=== PATIENT | male | born 1955 | race Caucasian/White ===

== ENCOUNTER 2025-02-25 06:54 | Day surgery (SDC) | payer OTHER ==
[~2025-02-25] VITALS: Ht 193 cm; Wt 126.1 kg
[2025-02-25] MEDS ORDERED: COQ-10100 MG PO (07:38)
[2025-02-25] MEDS ORDERED: C COMPLEX1000 M1 (07:38)
[2025-02-25] MEDS ORDERED: FISH OIL 1,0001 EA10 (07:38)
[2025-02-25] MEDS ORDERED: Midazolam HCL 1 MG/ML 5MLVIAL ONE (08:30)
== END 2025-02-25 10:14 | disposition home or self-care (01) ==
LOC: ORSCSDS 06:54
PROVIDERS: Surgery
PROC: 0DBL8ZX Excision of Transverse Colon, Via Natural or Artificial Opening Endoscopic, Diagnostic (ICD-10-PCS; principal; 2025-02-25 08:45)
PROC: 0DBN8ZX Excision of Sigmoid Colon, Via Natural or Artificial Opening Endoscopic, Diagnostic (ICD-10-PCS; principal; 2025-02-25 08:45)
PROC: 0DBK8ZX Excision of Ascending Colon, Via Natural or Artificial Opening Endoscopic, Diagnostic (ICD-10-PCS; principal; 2025-02-25 08:45)
PROC: 0DBP8ZX Excision of Rectum, Via Natural or Artificial Opening Endoscopic, Diagnostic (ICD-10-PCS; principal; 2025-02-25 08:45)
DX: Z12.11 Encounter for screening for malignant neoplasm of colon (principal); Z87.19 Personal history of other diseases of the digestive system; D12.2 Benign neoplasm of ascending colon; D12.3 Benign neoplasm of transverse colon; D12.8 Benign neoplasm of rectum; K63.5 Polyp of colon; I10 Essential (primary) hypertension; E78.5 Hyperlipidemia, unspecified; Z79.899 Other long term (current) drug therapy; Z87.891 Personal history of nicotine dependence
CPT/HCPCS: 88305; J2250; J2704; J7120